=== PATIENT | male | born 1985 | race Two or more races ===

== ENCOUNTER 2019-03-02 23:19 | Emergency (ER) | payer OTHER, SELFPAY ==
[~2019-03-02 23:19] MED LIST: Lactated Ringer's 1,000 ML BAG ONE; Sodium Chloride 0.9% 1,000 ML BAG ONE
--- NOTE | 2019-03-02 23:54 | CT ---
CT Brain WO Con HISTORY: Facial droop. COMPARISON: None. FINDINGS: The ventricular and cisternal system is within normal limits. There is considerable motion artifact degrades detail particularly in the posterior fossa region. There are no signs of intracerebral hemorrhage or extra-axial fluid collections. The mastoid air cells are clear. A retenti on cyst is seen within the left maxillary sinus. IMPRESSION: No acute intracranial abnormalities. Some moderate motion artifact.
[2019-03-03 00:03] LABS: #Basophils 0.1 thou/uL (0.0-0.2); #Lymphocytes 2.4 thou/uL (1.20-3.40); %Basophils 0.9 % (0.0-1.0); %Eosinophils 0.1 % (0.0-10.0); %Lymphocytes 19.1 % (21.0-51.0); %Monocytes 7.7 % (0.0-10.0); %Neutrophils 72.2 % (42.0-75.0); Hemoglobin 15.7 g/dL (14.0-18.0); Mean Corpuscular HGB CONC 32.7 g/dL (32.0-36.0); Mean Corpuscular Volume 85.6 fL (78.0-98.0); Mean Platelet Volume 11.4 fL (7.4-10.4); Platelet Count 225 thou/uL (130-400); RBC Distribution Width 11.5 % (11.5-14.5); Red Blood Cell (RBC) Count 5.61 mill/uL (4.70-6.10); White Blood Cell (WBC) Count 12.4 thou/uL (4.8-10.8)
[2019-03-03 00:18] LABS: ALT (SGPT) 21 U/L (8-55); AST (SGOT) 27 U/L (5-34); Albumin 5.6 g/dL (3.5-5.0); Alkaline Phosphatase 93 U/L (40-150); Anion Gap 26 mmol/L (10-20); BUN (Urea Nitrogen) 26 mg/dL (8.9-20.6); Bilirubin, Total 1.3 mg/dL (0.2-1.2); CK (CPK) 267 U/L (30-200); Calc. Creatinine Clearance 0 mL/min (70-130); Calcium 11.4 mg/dL (7.8-10.44); Carbon Dioxide 20 mmol/L (22-29); Chloride 98 mmol/L (98-107); Estimated GFR-MDRD 33; Globulin 3.9 g/dL (2.4-3.5); Glucose 117 mg/dL (70-105); Potassium 3.7 mmol/L (3.5-5.1); Protein, Total 9.5 g/dL (6.0-8.3); Sodium 140 mmol/L (136-145)
[2019-03-03 07:51] LABS: Anion Gap 10 mmol/L (10-20)
[2019-03-03 07:57] LABS: BUN (Urea Nitrogen) 20 mg/dL (8.9-20.6); CK (CPK) 173 U/L (30-200); Calc. Creatinine Clearance 0 mL/min (70-130); Calcium 7.9 mg/dL (7.8-10.44); Carbon Dioxide 23 mmol/L (22-29); Chloride 111 mmol/L (98-107); Estimated GFR-MDRD 77; Glucose 117 mg/dL (70-105); Potassium 4.1 mmol/L (3.5-5.1); Sodium 140 mmol/L (136-145)
== END 2019-03-03 08:20 | disposition home or self-care (01) ==
LOC: MADERS 23:19
DX: E86.0 Dehydration (principal); F17.200 Nicotine dependence, unspecified, uncomplicated
CPT/HCPCS: 70450; 80048; 80053; 82550; 84484; 85025; 96360; 96361; J7050; J7120